=== PATIENT | female | born 1970 | race Two or more races ===

== ENCOUNTER 2017-05-22 21:27 | Emergency (ER) | payer MEDICAID, OTHER ==
[~2017-05-22] VITALS: Ht 157.5 cm; Wt 78.0 kg
[2017-05-22 22:34] LABS: Eosinophils # (auto) 0.1 uL; Eosinophils % (auto) 0.9 % (0.0-7.0); Hemoglobin 7.8 g/dL (12.2-16.2); Lymphocytes # (auto) 1.7 uL; Mean Corpuscular Hemoglobin 17.9 pg (28.0-32.0); Mean Platelet Volume 8.3 fL (6.9-10.8); Monocytes # (auto) 0.5 uL
[2017-05-22 22:36] LABS: Basophils # (auto) 0 uL; Basophils % (auto) 0.5 % (0.0-2.0); Hematocrit 26.3 % (36.0-46.0); Lymphocytes % (auto) 20.6 % (10.0-50.0); Mean Corpuscular Hgb Conc. 29.6 g/dL (32.0-36.0); Mean Corpuscular Volume 60.6 fL (80.0-100.0); Monocytes % (auto) 6.2 % (0.0-12.0); Neutrophils % (auto) 71.8 % (37.0-80.0); Platelet Count (auto) 274 10^3/uL (140-450); Red Cell Distribution Width 18.9 % (11.8-14.3); White Blood Cell 8.3 10^3/uL (4.4-10.8)
[2017-05-22 22:48] LABS: Albumin 3.7 g/dL (3.4-5.0); BUN/Creatinine Ratio 19.4; Bilirubin, Total 0.8 mg/dL (0.2-1.0); Calcium 8.3 mg/dL (8.5-10.1); Potassium 3.5 mmol/L (3.5-5.1); Total Protein 7.7 g/dL (6.4-8.2)
[2017-05-22 23:03] LABS: Microcytosis Marked; Platelet Estimate Adequate
[2017-05-22 23:04] LABS: Ovalocytes FEW
[2017-05-22 23:05] LABS: Hypochromia Marked
[2017-05-22 23:06] LABS: Polychromasia Slight
[2017-05-22 23:08] LABS: Stomatocytes Few
[2017-05-22 23:11] LABS: INR 0.95 (0.9-1.15); Partial Thromboplastin Time 23.4 sec (22.64-33.71); Prothrombin Time 10.4 sec (9.37-12.3)
[2017-05-23 00:16] VITALS: BP 111/69
[2017-05-23] MEDS ORDERED: ACETAMINOPHEN 500 MG TAB PO ONE (00:30)
[2017-05-23 00:36] VITALS: BP 112/71
[2017-05-23 01:05] VITALS: BP 111/76
[2017-05-23 01:22] VITALS: BP 115/85
[2017-05-23 01:36] VITALS: BP 109/73
[2017-05-23 01:37] LABS: Urine Bilirubin Negative (Negative); Urine Blood Negative /uL (Negative); Urine Color Yellow (Yellow); Urine Glucose Normal (Normal); Urine Ketone Negative (Negative); Urine Mucus FEW (None Seen); Urine Nitrite Negative (Negative); Urine RBC 1 /hpf (0 - 4); Urine Squamous Epithelial Cell FEW /hpf (<5); Urine Urobilinogen Normal (Negative); Urine pH 6.5 (5.0-8.0)
[2017-05-23 02:04] VITALS: BP 110/82
== END 2017-05-23 04:01 | disposition home or self-care (01) ==
LOC: ER 21:32
DX: N93.9 Abnormal uterine and vaginal bleeding, unspecified (principal); R10.9 Unspecified abdominal pain; D64.9 Anemia, unspecified; Z88.0 Allergy status to penicillin
CPT/HCPCS: 36415; 74176; 80053; 81001; 84702; 85025; 85610; 85730; 86850; 86900; 86901; 86920; 99285; P9016; 36430

== ENCOUNTER 2017-05-24 10:11 | Emergency (ER) | payer MEDICAID ==
[~2017-05-24] VITALS: Ht 157.5 cm; Wt 78.0 kg
[2017-05-24 11:07] LABS: Basophils # (auto) 0 uL; Mean Corpuscular Hgb Conc. 30.5 g/dL (32.0-36.0); Mean Platelet Volume 8.2 fL (6.9-10.8); Monocytes # (auto) 0.6 uL
[2017-05-24 11:10] LABS: Basophils % (auto) 0.6 % (0.0-2.0); Eosinophils # (auto) 0.1 uL; Eosinophils % (auto) 1.8 % (0.0-7.0); Hematocrit 32.3 % (36.0-46.0); Hemoglobin 9.8 g/dL (12.2-16.2); Lymphocytes # (auto) 1.7 uL; Lymphocytes % (auto) 23.2 % (10.0-50.0); Mean Corpuscular Hemoglobin 19.6 pg (28.0-32.0); Mean Corpuscular Volume 64.5 fL (80.0-100.0); Monocytes % (auto) 8.1 % (0.0-12.0); Neutrophils # (auto) 4.9 uL; Neutrophils % (auto) 66.3 % (37.0-80.0); Nucleated Red Blood Cells % 0.1 %; Platelet Count (auto) 254 10^3/uL (140-450); White Blood Cell 7.4 10^3/uL (4.4-10.8)
[2017-05-24 11:15] LABS: Red Cell Distribution Width 23.8 % (11.8-14.3)
[2017-05-24 11:22] LABS: Albumin 3.8 g/dL (3.4-5.0); BUN/Creatinine Ratio 12.5; Bilirubin, Total 1.2 mg/dL (0.2-1.0); Calcium 8.5 mg/dL (8.5-10.1); Potassium 3.5 mmol/L (3.5-5.1); Total Protein 7.8 g/dL (6.4-8.2)
[2017-05-24 11:41] LABS: Urine RBC None Seen /hpf (0 - 4)
[2017-05-24 12:06] LABS: Platelet Estimate Adequate
[2017-05-24 12:07] LABS: Anisocytosis Slight; Hypochromia Slight; Microcytosis Slight
[2017-05-24 12:24] LABS: Urine Bilirubin Negative (Negative); Urine Blood Negative /uL (Negative); Urine Color Yellow (Yellow); Urine Glucose Normal (Normal); Urine Ketone Negative (Negative); Urine Nitrite Negative (Negative); Urine Squamous Epithelial Cell FEW /hpf (<5); Urine Urobilinogen Normal (Negative); Urine pH 5.5 (5.0-8.0)
[2017-05-24] MEDS ORDERED: ONDANSETRON HCL 4 MG/2 ML VIAL IM ONE (14:30)
[2017-05-24] MEDS ORDERED: HYDROmorphone HCL 2 MG/ML VL IM ONE (14:30)
[2017-05-24 14:38] VITALS: BP 107/68
== END 2017-05-24 15:41 | disposition home or self-care (01) ==
LOC: ER 10:11
DX: G43.909 Migraine, unspecified, not intractable, without status migrainosus (principal); Z88.0 Allergy status to penicillin; Z90.49 Acquired absence of other specified parts of digestive tract
CPT/HCPCS: 36415; 70450; 80053; 81001; 85025; 93005; 96372; 99285; J1170; J2405